=== PATIENT | female | born 1955 | race African-American/Black ===

== ENCOUNTER → 2018-04-29 | Day surgery (SDC) | payer OTHER ==
[2018-04-25 11:51] LABS: ANION GAP 15.2 mmol/L (8-16); BLOOD UREA NITROGEN 7 mg/dL (7-26); BUN/CREATININE RATIO 9 (6-25); CALCIUM 10.5 mg/dL (8.4-10.2); CARBON DIOXIDE 20 mmol/L (22-29); CHLORIDE 107 mmol/L (98-107); CREATININE, SERUM 0.81 mg/dL (0.57-1.11); EST GLOMERULAR FILTRATION RATE > 60 ML/MIN (60-); GLUCOSE 110 mg/dL (74-118); POTASSIUM 4.2 mmol/L (3.5-5.1); SODIUM 138 mmol/L (136-145)
[~2018-04-29] MED LIST: AMLODIPINE BESY10 MG PO; ATORVASTATIN CA10 MG PO; BELLADONNA/OPIUM 30 MG SUPP RC ONE; CEFTRIAXONE SOD 1 GM/NS 50 ML 50 ML IV ONE; DEXAMETHASONE SOD PHOS INJ 4 MG/ML VIAL ONE; FENTANYL CITRATE/PF 100MCG/2 ML INJ ONE; GABAPENTIN100 MG PO; GENTAMICIN 80MG/NS 100 ML 200 ML IV ONE; HYDROMORPHONE 2MG/ML 2 MG/ML ML ONE; IOPAMIDOL 610MG/1ML 300 MG/ML VIAL IV ONE; LIDOCAINE HCL 2% LOCAL INJ 5 ML SDV VIAL INJ ONE; LOSARTAN POTASS25 MG PO; METFORMIN HCL500 MG PO; MIDAZOLAM HCL 2 MG/2 ML VIAL ONE; MORPHINE SULFATE INJ 4 MG/ML INJ 1ML ONE; ONDANSETRON HCL INJ 2MG/ML 2ML 2 MG/ML VIAL ONE; PROPOFOL IV EMULSION 10 MG/ML 20 ML VIAL ONE; SEVOFLURANE INHAL SOLN 250 ML PEN BTL ONE; VITAMIN E400 UNIT PO
--- OUTSIDE RECORDS SUMMARY | 2018-04-29 10:02 | XMS REPORT | Continuity of Care Document ---
Author Author [facility] Interface Address Unknown Phone Unavailable Problems Problem Status Onset Date Classification Date Reported Comments Source Z96.0 Active 03/31/2018 [facility] METABOLIC ACIDOSIS WITH INCREASED ANION Active 03/02/2018 [facility] WEAKNESS OR FATIGUE Active 03/02/2018 [facility] ACIDOSIS Active [facility] Medications Medication Details Route Status Patient Instructions Ordering Provider Order Date Source Allergies, Adverse Reactions, Alerts Substance Category Reaction Severity Reaction type Status Date Reported Comments Source Immunizations Immunization Date Given Site Status Last Updated Comments Source Results Order Name Results Value Reference Range Date Interpretation Comments Source Breast Mammo Scrn LUBNA incl CAD MA Breast Mammo Scrn LUBNA incl CAD MA BILATERAL DIGITAL SCREENING MAMMOGRAM WITH CAD: 04/28/2018 CLINICAL: Routine/Screening. Current study was evaluated with a Computer Aided Detection (CAD) system. COMPARISON:No prior exams were available for comparison. TECHNIQUE: Mammographic views were obtained using digital acquisition. Current study was also evaluated with a Computer Aided Detection (CAD) system. FINDINGS: The tissue of both breasts is almost entirely fat. No significant masses, calcifications, or other findings are seen in either breast. IMPRESSION: NEGATIVE RECOMMENDATION:There is no mammographic evidence of malignancy. A 1 year screening mammogram is recommended.(04/29/2019) This exam was interpreted at [id number] at [facility]. Professional services are provided by the [facility]. Cherelle escamilla/sil:04/28/2018 08:53:38 Hotel Or Motel Receptionist(s): RT Carol(R)(M), [facility] Kwame Gil letter sent: BI-RADS 1/2 Mammogram BI-RADS: 1 Negative 04/28/2018 - - Read by: Cherelle Franco MD Dictated Date/time: 04/28/18 08:53 Electronically Signed by: Cherelle Franco MD 04/28/18 08:53 FINAL REPORT RIANNA Gil Abdomen AP DX Abdomen AP DX KUB: The right ureteral stent is in satisfactory position. The right mid ureteral calculus demonstrated on the previous studies is not visible which may be related to superimposition over osseous structures. There is no other visible urinary tract calculus. Multiple phleboliths are seen in the pelvis. The abdominal gas pattern is within normal limits. There are no acute osseous abnormalities. [id number] 03/31/2018 - - Read by: Brian Barakat MD Dictated Date/time: 03/31/18 09:29 Electronically Signed by: Brian Barakat MD 03/31/18 09:34 FINAL REPORT [facility] Stent placement ureteral VR Stent placement ureteral VR Patient Name: JEOVANY CANAS : 1955; Age: 62 years Female MR: [id number] PROCEDURE: 1. Fluoroscopic-guided placement of an internal right ureteral stent 2. Right antegrade nephrostogram 3. Removal of right nephrostomy tube CLINICAL INFORMATION: Obstructive right hydronephrosis COMPARISON: Nephrostomy tube placement on 03/03/2018, CT on 03/02/2018 CONSENT: The procedure, risks, benefits and alternatives were discussed with the patient and written informed consent was obtained. A "time out" was performed per protocol prior to the procedure. 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 Girard Preoperative diagnosis: Obstructive right hydronephrosis Postoperative diagnosis: Same Fluoroscopy time: 195 seconds Reference air kerma: 55 mGy Estimated blood loss: Minimal Moderate sedation: I supervised moderate sedation during this procedure. The patient was continuously monitored by a nurse using automated blood pressure, electrocardiogram, and pulse oximetry. The moderate sedation record is permanently stored in the hospital information system. The personal supervised moderate sedation time was 16 minutes. Medications administered: Versed 4 mg IV and Fentanyl 100 mcg IV. The patient was placed in a prone position on the fluoroscopy table. The right flank and indwelling right nephrostomy tube were prepped and draped with maximum barrier sterile technique. Small amount of contrast was administered through the indwelling right nephrostomy tube which confirmed location within the right renal collecting system as well as mild right hydronephrosis. Contrast flowed into the bladder with note of a calculus within the mid right ureter. A 0.035 inch Amplatz wire was advanced through the indwelling nephrostomy tube and into the renal pelvis. The indwelling nephrostomy tube was subsequently removed and a 4-Icelandic C2 catheter was advanced into the renal pelvis. The Amplatz wire was then directed into the bladder followed by removal of the C2 catheter. An 8-Icelandic x 24 cm ureteral stent was then advanced over the wire. The caudal pigtail of the ureteral stent was formed within the bladder and the cranial pigtail was formed within the renal pelvis. Postprocedure imaging demonstrated adequate position of the right ureteral stent. Patient tolerated the procedure well and transferred to the floor in stable condition. IMPRESSION: Successful placement of an internal right ureteral stent. SL: [id number] 03/08/2018 - - Read by: Kelli Girard MD Dictated Date/time: 03/08/18 14:21 Electronically Signed by: Kelli Girard MD 03/08/18 14:35 FINAL REPORT [facility] Nephrostomy drain perc unilateral VR Nephrostomy drain perc unilateral VR RIGHT PERCUTANEOUS NEPHROSTOMY: HISTORY: Obstructing right ureteral calculus with right hydronephrosis and sepsis. PROCEDURE: The procedure was done in the Special Procedures room using C-arm fluoroscopy. The fluoroscopic time was 317 seconds (66 mGy). Moderate Sedation was administered by the Interventional Radiology Nurse per ASA Guidelines under my direct supervision (1 mg Versed/25 mcg fentanyl over 32 minutes). Using a combination of ultrasound and fluoroscopic guidance, multiple passes into the right kidney were done with a 21-gauge trocar needle. Eventually, an inferior calyx was accessed following which a small amount of contrast was injected showing mild hydronephrosis with amorphous filling defects in the collecting system consistent with debris. Obstruction by the mid right ureteral calculus was demonstrated with a small amount of contrast passing beyond the stone. A 0.018 wire was then manipulated into the right collecting system and ureter followed by an AccuStick sheath. A 0.038 heavy-duty J-wire was then placed following which the tract was dilated and a 10-Icelandic Cardenas-Avitia catheter placed with the [place] loop in the right renal pelvis. A small amount of thick purulent urine was then drained which was sent for cultures. Due to the purulent urine and sepsis, additional contrast was not injected. The catheter was gently irrigated with saline, sutured to the skin, and connected to gravity drainage. The patient arrived hypotensive but remained stable during the procedure. There were no immediate complications and the patient was transferred back to the Intensive Care Unit in unchanged condition. [id number] 03/03/2018 - - Read by: Brian Barakat MD Dictated Date/time: 03/03/18 17:08 Electronically Signed by: Brian Barakat MD 03/03/18 17:22 FINAL REPORT [facility] Retroperitoneal Complete US Retroperitoneal Complete US Exam: Retroperitoneal Complete US Clinical Indication: Renal insufficiency - morgan. Comparison: CT chest abdomen and pelvis 03/02/2018. TECHNIQUE: Multiple longitudinal and transverse real time sonographic images of the kidneys and urinary bladder are obtained. FINDINGS: KIDNEYS: The right kidney measures 11.8 cm in length. The left kidney measures 10.6 cm in length. Normal shape, contour, and position. Cortices are normal in thickness and the corticomedullary differentiation is maintained. Mild right hydronephrosis is present. No significant left hydronephrosis. No echogenic foci/nephrolithiasis. No abnormal perinephric collections. BLADDER: The urinary bladder is collapsed containing Martinez catheter limiting evaluation. AORTA, COMMON ILIAC ARTERIES AND INFERIOR VENA CAVA: The visualized abdominal aorta, common iliac arteries and inferior vena cava appear unremarkable. ASCITES: No ascites noted. OTHER: Incidental note of heterogeneous increased attenuation of the liver parenchyma consistent with hepatic steatosis. IMPRESSION: 1. Mild right hydronephrosis. 2. Unremarkable left kidney. 3. Collapsed urinary bladder containing Martinez catheter limiting evaluation. : [id number] 03/03/2018 - - Read by: Jean-Pierre Garcia MD Dictated Date/time: 03/03/18 15:20 Electronically Signed by: Jean-Pierre Garcia MD 03/03/18 15:23 FINAL REPORT [facility] Chest 1 v for Placement Chest 1 v for Placement DX Patient Name: JEOVANY CANAS : 1955; Age: 62 years y/o Female MR: [id number] * CHEST, portable, 1 view 03/02/2018 @ 17:28 HISTORY: Status post central line placement. COMPARISON: None TECHNIQUE: A portable frontal radiograph of the chest was obtained following central line placement IMPRESSION: 1. The tip of the right IJ central venous catheter is in the lower superior vena cava. There is no evidence of pneumothorax or other complication following placement. 2. No other changes from earlier today. There is mild cardiomegaly and mild pulmonary vascular congestion. There is slight prominence of the interstitium, possible very mild or early interstitial edema. 3. No focal infiltrates or pleural effusions. 4. The regional skeleton is unremarkable. SL: KEVIN 03/02/2018 - - Read by: Jan Arias MD Dictated Date/time: 03/02/18 17:40 Electronically Signed by: Jan Arias MD 03/02/18 17:42 FINAL REPORT [facility] Chest/Abdomen/Pelvis wo IV contrast CT Chest/Abdomen/Pelvis wo IV contrast CT PROCEDURE: CT chest, abdomen, and pelvis without contrast. Reconstruction images. INDICATION: - hypotension. TECHNIQUE: GI CONTRAST: None. IV CONTRAST: None. Axial noncontrast images were obtained from the thoracic inlet to the symphysis pubis. Coronal and sagittal reconstruction images were performed. CT imaging performed at this location utilizes radiation dose optimization techniques which include one or more of the following: -Automated exposure control -Adjustment of the mA and/or kV according to patient size -Use of iterative reconstruction technique Total CT radiation dose: UCP=4755.99 mGy-cm COMPARISON: None. FINDINGS: CT CHEST: LOWER NECK AND SOFT TISSUES: No enlarged lymph node is seen. MEDIASTINUM: Normal size of the heart is noted. No pericardial effusion is identified. The thoracic aorta is normal in caliber without intimal flap. No central pulmonary embolus is visualized. PULMONARY PARENCHYMA: Bilateral lower lobe subsegmental atelectasis is seen with scattered ground glass densities. No focal consolidation, pleural effusion, or pneumothorax is noted. No pulmonary nodule or mass is apparent. CT ABDOMEN/PELVIS: SOLID ORGANS: The liver is enlarged with diffuse hypoattenuation. No focal hepatic lesion or intrahepatic biliary ductal dilatation is seen. Cholecystectomy clips are seen. The spleen, pancreas, and adrenal glands are normal in appearance. 7 mm proximal right ureteral calculus causes moderate right hydronephrosis. No additional urinary calculus is seen. No renal mass or cyst is apparent on this noncontrast study. BOWEL: The small bowel and colon are normal in caliber without wall thickening. A normal appendix is identified. PERITONEUM: No free intraperitoneal fluid or air. No ventral wall defects. RETROPERITONEUM: Normal caliber of the abdominal aorta is noted. No lymphadenopathy is seen. PELVIS: The visualized urinary bladder wall is normal thickness. The uterus is absent. MUSCULOSKELETAL: No acute osseous abnormality is seen. No destructive lytic or blastic osseous lesion is noted. IMPRESSION: 1. 7 mm proximal right ureter calculus causing moderate right hydronephrosis. 2. Scattered bilateral lower lobes groundglass densities representing pneumonitis of nonspecific etiology. Bilateral lower lobe subsegmental atelectasis. 3. Hepatomegaly with diffuse fatty infiltration. 4. Prior cholecystectomy and hysterectomy. 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 IMPRESSION: Mildly enlarged cardiac silhouette and prominent mediastinum. Mild vascular congestive change and pulmonary edema. No significant pleural effusion or pneumothorax. SL: [id number] 03/02/2018 - - Read by: Jose Sahni MD Dictated Date/time: 03/02/18 15:27 Electronically Signed by: Jose Sahni MD 03/02/18 15:29 FINAL REPORT [facility] Brain wo contrast CT Brain wo contrast CT Clinical Indication: - weakness. Comparison: None. TECHNIQUE: CT images were obtained from the foramen magnum to the vertex without the use of intravenous contrast on a multidetector CT. CT imaging was performed with exposure control parameters to reduce radiation dose. Coronal and sagittal reconstructions were obtained. CT imaging performed at this location utilizes radiation dose optimization techniques which include one or more of the following: -Automated exposure control -Adjustment of the mA and/or kV according to patient size -Use of iterative reconstruction technique CT Radiation Dose DLP 982.82 mGy-cm FINDINGS: BRAIN PARENCHYMA: There is generalized brain parenchymal atrophy related to the patient's age. Mild nonspecific periventricular white matter disease changes. No focal mass lesions on this noncontrast head CT. No mass effect, midline shift or edema. There are no intra-axial or extra-axial fluid collections, intraventricular or intraparenchymal hemorrhage. No low attenuation demarcating areas on this non-contrast CT to suggest subacute stroke. VENTRICLES: The lateral ventricles, third and fourth ventricles appear unremarkable. The basilar cisterns are normal. ORBITS, MASTOIDS AND PARANASAL SINUSES: The visualized orbits are unremarkable. There is mild mucosal thickening in the left maxillary sinus. The mastoid air cells are clear. SKULL: There are no osseous abnormalities. If there is further concern for intracranial pathology or acute stroke, MRI of the brain may be performed for complete assessment. IMPRESSION: No acute abnormality in the brain. SL: [id number] 03/02/2018 - - Read by: Dominiuqe Miranda MD Dictated Date/time: 03/02/18 16:33 Electronically Signed by: Dominique Miranda MD 03/02/18 16:38 FINAL REPORT [facility] Vital Signs Vital Sign Value Date Comments Source Encounters Location Location Details Encounter Type Encounter Number Reason For Visit Attending Provider ADM Date DC Date Status Source Outpatient [id number] ROBERTA SAHNI 03/31/2018 Active [facility] Procedures Procedure Code Date Perfomer Comments Source
--- OUTSIDE RECORDS SUMMARY | 2018-04-29 10:02 | XMS REPORT ---
Author Author [facility] Address Unknown Phone Unavailable Care Team Providers Care Certified Hand Therapist Name Role Phone Unavailable Unavailable Problems This patient has no known problems. Allergies, Adverse Reactions, Alerts This patient has no known allergies or adverse reactions. Medications This patient has no known medications.
[2018-04-29 10:52] LABS: BLOOD UREA NITROGEN 8 mg/dL (7-26); BUN/CREATININE RATIO 8 (6-25); CALCIUM 10.7 mg/dL (8.4-10.2); CARBON DIOXIDE 20 mmol/L (22-29); CHLORIDE 106 mmol/L (98-107); CREATININE, SERUM 0.98 mg/dL (0.57-1.11); EST GLOMERULAR FILTRATION RATE > 60 ML/MIN (60-); GLUCOSE 136 mg/dL (74-118); SODIUM 138 mmol/L (136-145)
--- NOTE | 2018-04-29 10:59 | Diagnostic Imaging Report ---
Exam:Abdominal radiograph History:Ureteroscopic Comparison: None available Findings:Surgical clips in the right upper quadrant. A right renal stent extending from the inferior pelvic shadow to the right aspect of the bladder. No visualized calculi. Multiple pelvic phleboliths. Impression: Right renal stent. No calculi. Signed by: Dr. Teofilo Garsia M.D. on 04/29/2018 10:56 AM
[2018-04-29 20:50] VITALS: BP 117/59
--- NOTE | 2018-04-29 22:55 | Consultation ---
DATE OF CONSULTATION: April 29, 2018 CARDIOLOGY CONSULTATION I am in call for cardiology at [facility]. I take emergency calls. Thank you for this consultation. I have been asked to evaluate this patient, Mrs. Martha Ponce, 62 years old, -[place]ong[place] pleasant woman, who had a cystoscopy and stent placement in the ureter and complained of chest pain, also found to have some PVCs, abnormal EKG. At the time of examination, patient does not complain of chest pain. Patient is awake and alert. Some Dilaudid was given for the pain post surgery procedure. Patient has history of hypertension and hyperlipidemia. Patient's medications include amlodipine 10 mg once a day, atorvastatin 10 mg once a day, and losartan potassium 25 mg, metformin 500 mg once a day, and also gabapentin 100 mg capsule once a day. Patient denies any history of myocardial infarction. According to her some time or may be few years ago, patient nuclear stress test found to be normal. Patient is moderately physical active. Patient's previous surgeries include hysterectomy and gall bladder surgery, some other surgeries. Patient has no significant allergies. At this time, examination shows no congestive heart failure. Lungs are normal. Abdomen is normal. No peripheral pedal edema, no carotid bruit, no peripheral artery disease. EKG shows poor R progress in V1 to V3 and noted to have occasional PVCs in the monitor and also according to her she had some PVCs in the past. At this time, troponin is negative. The patient is not in distress. Patient is quite stable hemodynamically. At this time, the patient will be discharged anytime at discretion of the surgeon and today itself the patient advised to ambulate in the floor before going home and also have sandwich and see if she is able to tolerate it and the patient advised to have nuclear stress done in [facility], which will be scheduled on next week, probably Wednesday. I explained to them and they are agreeable for it. They are going to call my number and we will schedule it at [facility]. At this time, any time patient can be discharged. I answered all the questions that were asked. was at bedside. IMPRESSION 1. Atypical chest pain. 2. Status post cystoscopy and ureteral stent placement. 3. Hypertension. 4. Hyperlipidemia. 5. Type 2 diabetes mellitus. The patient is in stable condition. Patient will be discharged anytime at the discretion of the surgeon and I told the family if any pain after going to home, they can call me again on my phone number. Job#: [id number] PAU CACERES
--- NOTE | 2018-04-30 18:27 | Operative Report ---
DATE OF PROCEDURE: April 29, 2018 PREOPERATIVE DIAGNOSES 1. Right nephrolithiasis. 2. Right indwelling ureteral stent. 3. Urinary tract infections. 4. Mixed-type urinary incontinence. POSTOPERATIVE DIAGNOSES 1. Right nephrolithiasis. 2. Right indwelling ureteral stent. 3. Urinary tract infections. 4. Mixed-type urinary incontinence. 5. Mild cystocele. 6. Urethral hypermobility. 7. Atrophic (senile) vaginitis. OPERATIONS PERFORMED 1. Cystourethroscopy with left ureteral catheterization and retrograde ureteropyelography (separately performed for the urinary tract infections). 2. Cystourethroscopy with complicated removal of right indwelling ureteral stent (separately performed for the diagnosis of the stent, done with separate scope). 3. Right semirigid and flexible ureteropyeloscopy with holmium laser lithotripsy and insertion of a new stent (separately performed for the large right nephrolithiasis). 4. Radiological services for supervision and interpretation of ureteroscopy. 5. Interpretation of retrograde ureteropyelography. 6. Supervision of fluoroscopy, no radiologist present. 7. Pelvic examination under anesthesia. ANESTHESIA: General. COMPLICATIONS: None. CLINICAL SUMMARY: Martha Ponce is a 62-year-old woman who underwent ureteral stenting under the care of another urologist in another facility. The patient is brought to the operating room for the above management. She is aware of the risks of bleeding, infection, injury to adjacent structures, need for additional procedures and elected to proceed. OPERATIVE PROCEDURE IN DETAIL: Informed consent was verified. Martha Ponce was properly identified, taken to the operating room, placed on the cystoscopy table in the supine position. Anesthesia was uneventfully begun. The patient was then carefully and gently repositioned in the dorsal lithotomy position with all pressure points well padded. Her genitalia were prepared and draped in the usual sterile fashion. The 22.5-Bhutanese cystoscope sheath with obturator in place was atraumatically inserted in the patient's urethra and the bladder was drained. Panendoscopy within the bladder revealed no suspicious mucosal lesions, no tumors, no stones, and no diverticula. Grade 1 trabeculations were noted. There was a stent emerging from the right ureteral orifice and it was mildly encrusted. The stent did not appear to be a urological stent, it appeared to be an interventional radiology stent. A ureteral catheter was used to cannulate the left ureter and retrograde ureteral pyelograms were performed. Guidewire was then placed alongside the stent and guided to level of the patient's kidney. The stent was then grasped, completely removed, and then discarded. The semirigid ureteroscope was then introduced atraumatically into the right ureter alongside the guidewire. The distal portion of the right ureter did not exhibit any urolithiasis nor any stones nor any suspicious lesions. The secondary guidewire was placed. Flexile urethroscope was then placed over the secondary guidewire and guided to the level of the patient's kidney where a large stone was identified in the renal pelvis. We proceeded with performing holmium laser lithotripsy of this stone until it was pulverized into multiple smaller fragments. The resultant fragments were all 2 to 3 mm in size and are believed to be easily passable. The largest of the remaining fragments was grasped with a Nitinol tipless basket and it was atraumatically extracted. With cystoscopic and fluoroscopic guidance, a right-sided indwelling ureteral stent was then placed. It was coiled in the patient's renal pelvis as well as in the patient's bladder. The retaining suture was cut short. INTERPRETATION OF RETROGRADE URETEROPYELOGRAPHY: Contrast was instilled in a retrograde fashion bilaterally. On the left hand side via ureteral catheter, it exhibited some J-hooking as well as no evidence of stone nor tumor nor obstruction. There was no hydronephrosis. Unobstructed drainage was observed fluoroscopically. The right hand side exhibited chronic-appearing hydronephrosis. The stent was in good position, coiled in the patient's kidney as well as patient's bladder at the end of the case. The right ureter was unremarkable. The patient's bladder was drained and the cystoscope was withdrawn. Pelvic examination under anesthesia revealed a mild cystocele with urethral hypermobility and atrophic (senile ) vaginitis. No abnormal palpable pelvic masses could be appreciated. There were no obvious mucosal lesions. A belladonna and opium suppository was placed and the patient was uneventfully reversed from anesthesia and taken to the recovery room in stable condition. There were no complications during the procedure. She tolerated the procedure well. Explicit postoperative instructions were given. We will plan on returning the patient to the operating room in several weeks to remove her stent, perform another ureteroscopy, and hopefully render the patient stent-free and stone-free at that time. Job#: [id number] PKU cc:DR. JASE MCCRAY
== END | disposition home or self-care (01) ==
LOC: OR 10:00
PROVIDERS: ATTEND Urology
DX: N20.0 Calculus of kidney (principal); Z46.6 Encounter for fitting and adjustment of urinary device; N39.0 Urinary tract infection, site not specified; N39.46 Mixed incontinence; N81.10 Cystocele, unspecified; N36.41 Hypermobility of urethra; N95.2 Postmenopausal atrophic vaginitis; N32.89 Other specified disorders of bladder; I49.3 Ventricular premature depolarization; R94.31 Abnormal electrocardiogram [ECG] [EKG]; R07.89 Other chest pain; I10 Essential (primary) hypertension; E78.5 Hyperlipidemia, unspecified; E11.9 Type 2 diabetes mellitus without complications; N13.30 Unspecified hydronephrosis; E66.9 Obesity, unspecified; Z01.810 Encounter for preprocedural cardiovascular examination; Z01.812 Encounter for preprocedural laboratory examination; Z79.84 Long term (current) use of oral hypoglycemic drugs; Z68.34 Body mass index [BMI] 34.0-34.9, adult
CPT/HCPCS: 36415 ×2; 52356; 74420; 80048 ×2; 82948; 84484; 88300; 93005 ×2; C2617; J0696; J1100; J1170; J1580; J2001; J2250; J2270; J2405; J2704; Q9967; 74018

== ENCOUNTER → 2018-06-03 | Day surgery (SDC) | payer OTHER ==
[2018-06-01 14:47] LABS: ANION GAP 14.1 mmol/L (8-16); BLOOD UREA NITROGEN 11 mg/dL (7-26); BUN/CREATININE RATIO 14 (6-25); CARBON DIOXIDE 22 mmol/L (22-29); CHLORIDE 107 mmol/L (98-107); CREATININE, SERUM 0.79 mg/dL (0.57-1.11); EST GLOMERULAR FILTRATION RATE > 60 ML/MIN (60-); GLUCOSE 78 mg/dL (74-118); POTASSIUM 4.1 mmol/L (3.5-5.1); SODIUM 139 mmol/L (136-145)
--- NOTE | 2018-06-01 16:38 | Diagnostic Imaging Report ---
EXAM: ABDOMEN-1VIEW (KUB) DATE: 06/01/2018 2:22 PM INDICATION: Kidney stone COMPARISON: KUB, 04/29/2018 FINDINGS: 2 supine views of the abdomen shows a right double-J ureteral stent extending from the right kidney to bladder level. This appears to be a different stent and seen on the previous exam. No calcifications are projected on the kidneys or along the right ureteral stent, noting that in some areas small calcifications might be obscured by overlying bowel or bone. There are numerous calcifications projected on the right and left hemipelvis areas likely representing phleboliths. Surgical clips are present in the right upper abdomen. No acute bony abnormality. Lung bases are clear. IMPRESSION: Right double-J ureteral stent. No calcifications are identified projected on either kidney or along the ureteral stent. Signed by: Dr. Abdon Foster M.D. on 06/01/2018 4:34 PM
[~2018-06-03] MED LIST changes: +AZO CRANBERRY1 EAC1; +AZO1 EACH; +FLUCONAZOLE 200 MG/100 ML 100 ML IV ONE; +GENTAMICIN 80MG/NS 100 ML 100 ML IV ONE; -GENTAMICIN 80MG/NS 100 ML 200 ML IV ONE; -HYDROMORPHONE 2MG/ML 2 MG/ML ML ONE; -MORPHINE SULFATE INJ 4 MG/ML INJ 1ML ONE
--- OUTSIDE RECORDS SUMMARY | 2018-06-03 10:48 | XMS REPORT | Summary of Care ---
Author Author [facility] [place] Organization [facility] [place] Address Unknown Phone Unavailable Encounter BOLA Marlow(ANILA) [id number] Date(s): 04/28/18 - 04/28/18 [facility] [place] [address] [place] [address]- [phone] Discharge Disposition: Home or Self Care Attending Physician: Garrett Watson DO Referring Physician: Garrett Watson DO Vital Signs No data available for this section Problem List Condition Effective Dates Status Health Status Informant Kidney Resolved stones(Confirmed) Allergies, Adverse Reactions, Alerts Substance Reaction Severity Status NKDA Active Medications No data available for this section Results No data available for this section Immunizations No data available for this section Procedures Procedure Date Related Diagnosis Body Site Status Arthroscopic repair of meniscus Completed Bilateral tubal ligation Completed Cholecystectomy Completed Social History Social History Type Response Alcohol Current, Type Wine. Frequency: 1-2 times per month. Smoking Status Never smoker; Exposure to Tobacco Smoke None; Cigarette Smoking Last 365 Days No; Reg Smoking Cessation Counseling No entered on: 03/31/18 Assessment and Plan No data available for this section
--- OUTSIDE RECORDS SUMMARY | 2018-06-03 10:48 | XMS REPORT | Continuity of Care Document ---
Author Author [facility] Interface Address Unknown Phone Unavailable Problems Problem Status Onset Date Classification Date Reported Comments Source Z96.0 Active 03/31/2018 [facility] WEAKNESS OR FATIGUE Active 03/02/2018 [facility] METABOLIC ACIDOSIS WITH INCREASED ANION Active 03/02/2018 [facility] Kidney stones Resolved Problem 04/30/2018 [facility] [place] ACIDOSIS Active [facility] Medications Medication Details Route Status Patient [...] is recommended.(04/29/2019) This exam was interpreted at [id number] at [facility]. Professional services are provided by the [facility]. Cherelle escamilla/penrad:04/28/2018 08:53:38 Weigh Boss(s): RT Carol(Marci)(M), [facility] letter sent: BI-RADS 1/2 Mammogram BI-RADS: 1 [...] limits. There are no acute osseous abnormalities. [id number] 03/31/2018 - - Read by: Brian Barakat MD Dictated Date/time: 03/31/18 09:29 Electronically Signed by: Brian Barakat MD 03/31/18 09:34 FINAL REPORT [facility] Stent placement ureteral VR Stent placement ureteral VR Patient Name: JEOVANY CANAS : 1955; Age: 62 years Female MR: [id number] PROCEDURE: 1. Fluoroscopic-guided placement of an internal [...] per protocol prior to the procedure. TECHNIQUE: treating machine operator: Dr. Girard Preoperative diagnosis: Obstructive right [...] nephrostomy tube was subsequently removed and a 4-Zambian C2 catheter was advanced into the renal pelvis. The Amplatz wire was then directed into the bladder followed by removal of the C2 catheter. An 8-Zambian x 24 cm ureteral stent was then [...] of an internal right ureteral stent. SL: [id number] 03/08/2018 - - Read by: Kelli Girard [...] which the tract was dilated and a 10-Zambian Cardenas-Avitia catheter placed with the [place] loop in the right renal pelvis. A [...] the Intensive Care Unit in unchanged condition. [id number] 03/03/2018 - - Read by: Brian Barakat MD Dictated Date/time: 03/03/18 17:08 Electronically Signed by: Brian Barakat MD 03/03/18 17:22 FINAL REPORT [facility] Retroperitoneal Complete US Retroperitoneal Complete US [...] urinary bladder containing Martinez catheter limiting evaluation. SL: [id number] 03/03/2018 - - Read by: Jean-Pierre Garcia MD Dictated Date/time: 03/03/18 15:20 Electronically Signed by: Jean-Pierre Garcia MD 03/03/18 15:23 FINAL REPORT [facility] Chest 1 v for Placement DX Chest 1 v for Placement DX Patient Name: JEOVANY CANAS : 1955; Age: 62 years y/o Female MR: [id number] * CHEST, portable, 1 view 03/02/2018 @ [...] Jan Arias MD 03/02/18 17:42 FINAL REPORT [facility] Chest/Abdomen/Pelvis wo IV contrast CT Chest/Abdomen/Pelvis [...] iterative reconstruction technique Total CT radiation dose: ZRC=7938.99 mGy-cm COMPARISON: None. FINDINGS: CT CHEST: LOWER [...] fatty infiltration. 4. Prior cholecystectomy and hysterectomy. 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 IMPRESSION: Mildly enlarged cardiac silhouette and prominent mediastinum. Mild vascular congestive change and pulmonary edema. No significant pleural effusion or pneumothorax. : [id number] 03/02/2018 - - Read by: Jose Bills MD Dictated Date/time: 03/02/18 15:27 Electronically Signed by: Jose Bills MD 03/02/18 15:29 FINAL REPORT [facility] Brain wo contrast CT Brain wo [...] SL: [id number] 03/02/2018 - - Read by: Dominique Miranda MD Dictated Date/time: 03/02/18 16:33 Electronically Signed by: Dominique Miranda MD 03/02/18 16:38 FINAL REPORT [facility] Vital Signs Vital Sign Value Date Comments Source Encounters Location Location Details Encounter Type Encounter Number Reason For Visit Attending Provider ADM Date DC Date Status Source Outpatient [id number] ROBERTA KAITLYN 03/31/[address] [facility] [place] [facility] [id number] Garrett Watson 04/28/2018 04/29/2018 RIANNA Gil Procedures Procedure Code Date Perfomer Comments Source Arthroscopic repair of meniscus [id number] [facility] [place] Bilateral tubal ligation [id number] [facility] [place] Cholecystectomy [id number] [facility] [place]
[2018-06-03 15:20] VITALS: BP 141/73
--- NOTE | 2018-07-27 07:17 | Operative Report ---
DATE OF PROCEDURE: 06/03/2018 SURGEON: Boogie Campbell MD PREOPERATIVE DIAGNOSES: 1. Right nephrolithiasis. 2. Right indwelling ureteral stents. POSTOPERATIVE DIAGNOSES: 1. Right numerous nephrolithiasis. 2. Right ureterolithiasis. 3. Right ureteral stricture. 4. Right hydronephrosis. 5. Right indwelling ureteral stent. 6. Grade 2 cystocele. 7. Grade 2 rectocele. 8. Urethral hypermobility. 9. Atrophic (senile) vaginitis. OPERATIONS PERFORMED: 1. Cystourethroscopy with complicated removal of right indwelling ureteral stent (separately performed for the diagnosis of stent on the separate scope). 2. Right semi-rigid ureteroscopy with stone manipulation and extraction (separately performed for right ureterolithiasis). 3. Extensive and repeated right ureteropyeloscopy with stone manipulation and extraction (separately performed for numerous right-sided renal stones). 4. Cystourethroscopy with ureteroscopy with calibration and dilation of right ureteral stricture (separate procedure performed for the diagnosis of stricture done with a semi-rigid ureteroscope). 5. Radiological services for supervision and interpretation of ureteroscopy. 6. Cystourethroscopy with insertion of right indwelling ureteral stent (separate procedure performed to relieve the hydronephrosis). 7. Interpretation of retrograde ureteropyelography. 8. Supervision of fluoroscopy, no radiologist present. 9. Pelvic examination under anesthesia. ANESTHESIA: General. COMPLICATIONS: None. CLINICAL SUMMARY: Martha Ponce is a 62-year-old woman who has stones. She underwent previous stone surgery and is brought in staged fashion for the above procedures. She is aware of the risks of bleeding, infection, injury to adjacent structures, need for additional procedures, and elected to proceed. OPERATIVE PROCEDURE IN DETAIL: Informed consent was verified. Kris was properly identified, taken to the operative room, placed on the cystoscopy table in supine position. Anesthesia was uneventfully begun. The patient was then carefully and gently repositioned in dorsal lithotomy position with all pressure points well padded. Her genitalia were prepared and draped in usual sterile fashion. The cystoscope sheath with obturator in place was atraumatically inserted. The patient's urethra and bladder was drained. Panendoscopy revealed a stent emerging from the right ureteral orifice. There were no suspicious lesions. There were no tumors. Mild erythema was noted around the stent. The guidewire was then placed alongside the stent and guided at the level of the patient's kidney. The stent was then grasped, completely removed and discarded. Semi-rigid ureteroscope was then placed alongside the guidewire into the patient's distal ureter. We identified the stone, grasped it, we pulled it out atraumatically. We reintroduced the semi-rigid ureteroscope, had exhibited, it was brought a little more proximally then for the stone manipulation and there we identified a ureteral stricture. We gently dilated across the stricture utilizing the semi-rigid ureteroscope as a dilator. We then placed a secondary guidewire. We then performed numerous ureteroscopies. We brought the flexible ureteroscope up into the patient's kidney. We identified numerous stones. The stones were each grasped with Nitinol tipless basket and extracted one or two at a time in an atraumatic fashion down the ureter. We utilized the coaxial dilator to reintroduce the guidewire to perform numerous ureteroscopies until all significantly sized stones and stone fragments were removed. There were Jovi's plaques present throughout the kidney, but no significantly sized stone remained. With cystocope and fluoroscopic guidance, the right-sided indwelling ureteral stent was then placed to coil the patient's kidney as well as the patient's bladder. The retaining suture was cut short. Interpretation of retrograde ureteropyelography: Contrast was instilled in a retrograde fashion on the right hand side. There was fullness of the right-sided collecting system. There was chronic-appearing hydronephrosis. The stent was in good position, coiled the patient's kidney as well as the patient's bladder at the end of the case. Examination under anesthesia revealed a grade 2 cystocele, grade 2 rectocele. There was urethral hypermobility and atrophic vaginitis. No abnormal palpable pelvic masses could be appreciated. There were no obvious mucosal lesions. The patient was then uneventfully reversed from anesthesia and taken to recovery room in stable condition. Expressive postop instructions were given. The plan will be to return the patient for followup as an outpatient to remove her stents. Boogie Campbell MD [place]/MODL /[id number] cc: Dr. Garrett Watson
== END | disposition home or self-care (01) ==
LOC: OR 10:41
PROVIDERS: ATTEND Urology
DX: N20.0 Calculus of kidney (principal); N20.1 Calculus of ureter; N13.5 Crossing vessel and stricture of ureter without hydronephrosis; N13.30 Unspecified hydronephrosis; Z46.6 Encounter for fitting and adjustment of urinary device; N39.0 Urinary tract infection, site not specified; N81.10 Cystocele, unspecified; N81.6 Rectocele; N36.41 Hypermobility of urethra; N95.2 Postmenopausal atrophic vaginitis; I10 Essential (primary) hypertension; E11.9 Type 2 diabetes mellitus without complications; M19.90 Unspecified osteoarthritis, unspecified site; Z01.810 Encounter for preprocedural cardiovascular examination; Z01.812 Encounter for preprocedural laboratory examination; Z79.84 Long term (current) use of oral hypoglycemic drugs
CPT/HCPCS: 36415 ×2; 52332; 52344; 52352; 74018; 74420; 80048; 82948; 87086; 87102; 87186; 87206; 88300; 93005; C1766; C2617; J0696; J1100; J1450; J1580; J2001; J2250; J2405; J2704; Q9967